=== PATIENT | male | born 1960 | race Caucasian/White ===

== ENCOUNTER → 2016-05-22 | Outpatient (CLI) | payer OTHER ==
[~2016-05-22] MED LIST: IOPAMIDOL (ISOVUE-300) 50 ML VIAL IV ONE
--- NOTE | 2016-05-22 16:49 | CT ---
CT Scan of the Abdomen and Pelvis (With Contrast) Clinical Indications: Pelvic pain and thigh pain. Technique: Dilute contrast was given orally prior to scanning. 90 mL of Isovue 300 were given intra venously by machine power injection. Multidetector helical CT imaging was performed from the diaphra gm to the symphysis pubis. Dose reduction techniques were utilized. Findings: Abdomen: The lung bases are clear, and there is no significant pleural fluid. The liver is normal. The biliary ducts and gallbladder are unremarkable. The pancreas and spleen are normal. The adrena l glands and kidneys are normal. No adenopathy and no masses are found. No aneurysm of the abdomina l aorta. Pelvis: The urinary bladder is unremarkable. No free fluid in the pelvis. No masses are identified. Bowel loops are normal. Bones: There are moderate degenerative changes of the spine with severe degenerative disk disease at T9-T10. Disk spaces are relatively well maintained until the moderate narrowing at L5-S1. There is bi lateral severe osteoarthritic changes of the hips, worse on the left than on the right. There is a mo derate size joint effusion of the left hip. Impression: 1. Bilateral osteoarthritis of the hips, severe and worse on the left than on the right. 2. Normal CT of the abdomen and pelvis.
== END ==
LOC: FIMAGING 14:00
PROVIDERS: ATTEND Family Medicine
DX: M16.12 Unilateral primary osteoarthritis, left hip (principal)
CPT/HCPCS: Q9967

== ENCOUNTER → 2016-05-28 | Outpatient (CLI) | payer OTHER ==
--- NOTE | 2016-05-28 17:36 | DX ---
Six views lumbar spine Indication: Back pain. Findings: Comparison CT of May 22, 2016. Similar findings of osteoarthritis are present on today's examination. On flexion and extension imagi ng, there is no evidence of anterolisthesis or retrolisthesis. Disk spaces are mildly to moderately n arrowed at L4-L5 and moderately severely narrowed at L5-S1. The severe degenerative change at T9-T10 is not visualized on these films. The T12-L1 disk space is visualized and mildly narrowed with some a nterior osteophyte production. Facet osteoarthritis is present. Impression: Moderate degenerative disk disease at L4-L5 and L5-S1, less severe at T12-L1. Findings a re similar to the degenerative changes on the CT from 6 days prior.
== END ==
LOC: FIMAGING 09:31
PROVIDERS: ATTEND Family Medicine Sports Medicine
DX: M51.36 Other intervertebral disc degeneration, lumbar region (principal); M51.37 Other intervertebral disc degeneration, lumbosacral region; M51.34 Other intervertebral disc degeneration, thoracic region

== ENCOUNTER → 2017-07-14 | Outpatient (CLI) | payer OTHER | LOC: FIMAGING 09:13 | PROVIDERS: ATTEND Family Medicine Sports Medicine | DX: R10.9 Unspecified abdominal pain (principal); R14.0 Abdominal distension (gaseous) ==

== ENCOUNTER 2017-12-01 17:15 | Emergency (ER) | payer OTHER ==
[2017-12-01 17:21] VITALS: BP 115/90
--- NOTE | 2017-12-01 17:39 | EDPHY ---
H & P Stated Complaint: hip reLeft replacement this am, 2x attempts to self cath unsuccessful. Time Seen by Provider: 12/01/17 17:20 HPI/ROS: Chief Complaint: Can't urinate HPI: 56-year-old male had a left total hip replacement this morning by Dr. Gallegos. He was able to urinate 300 mL earlier but since that time has not been able to pass any urine. He does not have the sense that he needs to pass urine. He does feel like he needs to have a bowel movement. They attempted to straight cath him twice without success and sent him to the emergency department for Vazquez catheter placement. He is currently without complaint. ROS: 10 point Review of Systems is negative except as noted in the HPI. Social History: No smoking, no alcohol, no recreational drug use Family History: non-contributory Physical Exam: Gen: Awake, Alert, No Distress HEENT: Nose: no rhinorrhea Eyes: PERRLA, EOMI Mouth: Moist mucosa Neck: Supple, no JVD Chest: nontender, lungs clear to auscultation Heart: S1, S2 normal, no murmur Abd: Soft, non-tender, no guarding Back: no CVA tenderness, no midline tenderness Ext: Left hip dressing intact Skin: no rash Neuro: CN II-XII intact, Sensation grossly intact, Strength 5/5 in bilateral upper and lower extremities - Personal History Current Tetanus Diphtheria and Acellular Pertussis (TDAP): Unsure - Medical/Surgical History Hx Asthma: No Hx Chronic Respiratory Disease: No Hx Diabetes: No Hx Cardiac Disease: No Hx Renal Disease: No Hx Cirrhosis: No Hx Alcoholism: No Hx HIV/AIDS: No Hx Splenectomy or Spleen Trauma: No Other PMH: Hypothyroid. Left hip replacement 12/01/17. - Social History Smoking Status: Never smoked Constitutional: Initial Vital Signs Temperature (C) 36.5 C 12/01/17 17:16 Heart Rate 95 12/01/17 17:16 Respiratory Rate 16 12/01/17 17:16 Blood Pressure 115/90 H 12/01/17 17:16 O2 Sat (%) 96 12/01/17 17:16 O2 Delivery Mode Room Air Allergies/Adverse Reactions: No Known Allergies Allergy (Unverified 05/15/14 09:50) Home Medications: Medication Instructions Recorded Levothyroxine Unk Dose 04/30/16 oxyCODONE/APAP 5/325 [Percocet 1 - 2 tab PO Q4-6PRN PRN #14 tab 04/30/16 5/325 (RX)] Medical Decision Making ED Course/Re-evaluation: Bladder scan shows only 55 mL of urine in the bladder. There is deformed 3 times. I do not feel he needs a Vazquez catheter at this time. I will discussed with the orthopedic PA. Departure - Departure Disposition: Home, Routine, Self-Care Clinical Impression: Difficulty urinating Condition: Good Instructions: Urinary Retention in Men (ED) Additional Instructions: Return to the emergency department if you feel the urge to urinate but are unable to pass urine. Follow up with Dr. Gallegos as scheduled. Referrals: Harsh Dorado MD [Primary Care Provider] - As per Instructions
== END 2017-12-01 18:04 | disposition home or self-care (01) ==
DX: R30.0 Dysuria (principal)